=== PATIENT | male | born 1960 | race African-American/Black ===

== ENCOUNTER 2020-10-05 06:31 | Emergency (ER) | payer OTHER, SELFPAY ==
--- NOTE | 2020-10-05 07:00 | ED_ITS ---
HPI - Skin/Abscess/Foreign Bdy General Chief complaint: Skin/Abscess/Foreign Body Stated complaint: ?bug bite Time Seen by Provider: 10/05/20 07:00 Source: patient and metal buffer Mode of arrival: ambulatory Limitations: no limitations History of Present Illness complaint: abscess/boil Onset (ago): week(s) (1) Tetanus up to date: yes Location: buttocks Severity: moderate Quality: aching Pain Consistency: constant Relieving factors: none Exacerbating factors: movement Context: none Associated symptoms: denies other symptoms Treatments prior to arrival: none Related Data Previous Rx's Medication Instructions Recorded cephalexin 500 mg PO TID 7 Days #21 cap 10/05/20 doxycycline hyclate 100 mg PO BID 7 Days #14 cap 10/05/20 Allergies Allergy/AdvReac Type Severity Reaction Status Date / Time No Known Allergies Allergy Unverified 08/16/20 15:54 Review of Systems Review of Systems: Constitutional : No Fever, No Chills ENT/Mouth : No sore throat, No Rhinorrhea Eyes: No Eye Pain, No Swelling, No Redness Cardiovascular : No Chest Pain, No SOB Respiratory : No Cough, No Sputum Gastrointestinal : No Nausea, No Vomiting, No Diarrhea, No abdominal Pain Genitourinary : No Dysuria, No Hematuria, positive rectal pain Musculoskeletal : No joint pain, No Myalgias, No Joint Swelling Skin : No Skin Lesions, positive skin lesion Neuro : No Weakness, No Numbness, No Headache Psych : No Anxiety, No Depression Heme/Lymph: No Bruising, No Bleeding,No Lymphadenopathy Endocrine : No Polyuria, No Polydipsia All other systems reviewed and are negative [facility] Past Medical History Attestation statement: The following information was validated with the patient. Medical History (Updated 10/05/20 @ 10:05 by Jesica Medeiros DO) Depression Gastritis Social History Social History (Updated 10/05/20 @ 07:01 by Jesica Medeiros DO) Alcohol intake: never Smoking Status: Never smoker Smoked in Last 30 Days: No Use of substances other than those prescribed or required for medical reasons: Yes Substance Use Type: Marijuana Substance Use Frequency: Chronic Longstanding Advance Directives: No Advance Directives Information Provided: No Physical Exam Vital Signs: Vital Signs: Last Vital Signs Temp 98.3 F 10/05/20 07:08 Pulse 83 10/05/20 07:08 Resp 16 10/05/20 07:08 BP 138/70 10/05/20 07:08 Pulse Ox 98 10/05/20 07:08 Body Mass Index 22.2 Appearance: Alert. Oriented X3. No acute distress. Eyes: Pupils equal, round and reactive to light. ENT: Pharynx normal. Neck: Normal inspection. Neck supple. CVS: Normal heart rate and rhythm. Pulses normal. Respiratory: No respiratory distress. Breath sounds normal. Abdomen: Soft and nontender. Rectal: left perianal area into rectum fluctuant lesion noted mild erythema/no crepitus, about 3cm palpable area Skin: Skin warm and dry. Normal skin color. Normal skin turgor. Extremities: No lower extremity edema. No calf ttp Neuro: Oriented X 3. No motor deficit. No sensory deficit. Course Course Course Narrative: prelim CT read: skin thickening subq fat and buttock, thick ening of anus no abscess seen, circumferential wall thickening of aorta and iliac arteries and adjacent lymphadenopathy ?vasculitis vs atypical atherosclerotic ds, small R renal cyst call to Dr. Amin for ?vasculitis seems atypical no abscess will start on antibiotics and refer to surgery for cellulitis - no WBC count, afebrile, neg lactic acidosis per Dr. Amin after review of CT scan - thickened ? nothing acute to do at this time - treat with antibiotics, follow up in clinic MDM - Skin/Abscess/Foreign Bdy MDM Narrative Medical decision making narrative: 60 yo male no known DM here with 1+ week of perineum abscess that extends to rectum - painfuul to touch, no crepitus, no sig erythema of skin, scrotum appears normal - given location and extension to rectal area will obtain labs, CT scan for depth, IV zosyn, IV morphine for pain, dispo per results and findings. Lab Data Result diagrams: 10/05/20 07:33 10/05/20 07:33 Labs: Lab Results 10/05/20 10/05/20 10/05/20 Range/Units 07:33 07:33 07:33 WBC 8.9 (4.8-10.8) X10*3/uL RBC 4.37 L (4.60-5.80) X10*6/uL Hgb 12.5 L (14.0-18.0) g/dl Hct 39.5 L (42-52) % MCV 90.4 (80-98) fL MCH 28.6 (27.0-33.0) pg MCHC 31.6 (31.0-36.0) g/dl RDW 14.3 (11.0-16.0) % Plt Count 238 (160-400) X10*3/uL MPV 10.1 (9.4-12.4) fL Immature Gran % (Auto) 0.1 (0.0-0.4) % Neut % (Auto) 65.8 (45-73) % Lymph % (Auto) 23.2 (20-40) % [place] % (Auto) 8.3 (2-11) % Eos % (Auto) 2.4 (0-4) % Baso % (Auto) 0.2 (0-2) % Lymph # (Auto) 2.1 (1.2-4.9) X10*3/uL [place] # (Auto) 0.7 (0.1-1.2) X10*3/uL Eos # (Auto) 0.2 (0.0-0.4) X10*3/uL Baso # (Auto) 0.0 (0.0-0.2) X10*3/uL Abs Immat Gran (auto) 0.01 (0.00-0.03) X10*3/uL Absolute Neuts (auto) 5.9 (2.0-8.3) X10*3/uL Absolute Nucleated RBC 0.000 (0.0-0.012) X10*3/uL Nucleated RBC % (auto) 0.0 (0.0-0.2) /100WBC PT 12.2 (10.8-13.0) SEC INR 1.0 (0.9-1.1) APTT 34.6 (24.1-38.0) SEC Sodium 139 (135-145) mmol/L Potassium 4.0 (3.3-5.1) mmol/l Chloride 103 (96-108) mmol/L Carbon Dioxide 29 (22-29) mmol/L Anion Gap 11 L (12-20) BUN 13 (9-16) mg/dL Creatinine 0.92 (0.5-1.4) mg/dL Estim Creat Clear Calc 74.6 Estimated GFR > 60 Random Glucose 117 H (60-115) mg/dL Lactic Acid (0.5-2.0) mmol/L Calcium 8.3 L (8.4-10.2) mg/dL Magnesium 1.9 (1.6-2.6) mg/dL 10/05/20 Range/Units 07:33 WBC (4.8-10.8) X10*3/uL RBC (4.60-5.80) X10*6/uL Hgb (14.0-18.0) g/dl Hct (42-52) % MCV (80-98) fL MCH (27.0-33.0) pg MCHC (31.0-36.0) g/dl RDW (11.0-16.0) % Plt Count (160-400) X10*3/uL MPV (9.4-12.4) fL Immature Gran % (Auto) (0.0-0.4) % Neut % (Auto) (45-73) % Lymph % (Auto) (20-40) % [place]orne % (Auto) (2-11) % Eos % (Auto) (0-4) % Baso % (Auto) (0-2) % Lymph # (Auto) (1.2-4.9) X10*3/uL [place] # (Auto) (0.1-1.2) X10*3/uL Eos # (Auto) (0.0-0.4) X10*3/uL Baso # (Auto) (0.0-0.2) X10*3/uL Abs Immat Gran (auto) (0.00-0.03) X10*3/uL Absolute Neuts (auto) (2.0-8.3) X10*3/uL Absolute Nucleated RBC (0.0-0.012) X10*3/uL Nucleated RBC % (auto) (0.0-0.2) /100WBC PT (10.8-13.0) SEC INR (0.9-1.1) APTT (24.1-38.0) SEC Sodium (135-145) mmol/L Potassium (3.3-5.1) mmol/l Chloride (96-108) mmol/L Carbon Dioxide (22-29) mmol/L Anion Gap (12-20) BUN (9-16) mg/dL Creatinine (0.5-1.4) mg/dL Estim Creat Clear Calc Estimated GFR Random Glucose (60-115) mg/dL Lactic Acid 1.3 (0.5-2.0) mmol/L Calcium (8.4-10.2) mg/dL Magnesium (1.6-2.6) mg/dL Discharge Plan Discharge Clinical Impression: Cellulitis Qualifiers: Site of cellulitis: buttock Qualified Code(s): L03.317 - Cellulitis of buttock Patient Disposition: Home, Self-Care Instructions: Cellulitis (ED) Additional Instructions: return to ED for any worsening symptoms or concerns you will need to have a repeat CT scan in the next few months to assess your blood vessels Prescriptions: New cephalexin 500 mg capsule 500 mg PO TID 7 Days Qty: 21 RF: 0 doxycycline hyclate 100 mg capsule 100 mg PO BID 7 Days Qty: 14 RF: 0 Referrals: Nga Domingo MD [Primary Care Provider] - 2 days (2 days wound check) Luis Fernando Frias MD [Physician] - 1 week Octavio Amin MD [Physician] - 2 weeks (follow up in the next few weeks) Stand Alone Forms: Work/School Release Print Language: Romanian
[2020-10-05 07:08] VITALS: BP 138/70; PULSE 83; RESP 16; TEMP 36.8; O2SAT 98; BMI 22.2
--- NOTE | 2020-10-05 07:11 | CT_ITS ---
EXAMINATION: CT ABDOMEN AND PELVIS WITH CONTRAST CLINICAL INFORMATION: Left perirectal swelling and mass. COMPARISON: None TECHNIQUE: Multidetector volumetric images were obtained from the superior aspect of the liver through the pubic symphysis following administration 85 mL of Omnipaque 350 intravenous contrast. Sagittal and coronal reformatted images were obtained on the technologist's workstation. No oral contrast. This CT examination was performed using dose optimization techniques as appropriate, variously including the following: *Automated exposure control *Adjustment of mA and/or kV according to patient size (this includes techniques or standardized protocols for targeted exams where dose is matched to indication/reason for exam; i.e. extremities or head) *Use of iterative reconstruction technique DLP: 512 mGy-cm FINDINGS: LUNG BASES: The visualized lung bases are unremarkable. LIVER, GALLBLADDER, AND BILIARY TREE: The liver is normal in size, shape, and attenuation. No focal hepatic lesion or biliary ductal dilatation is present. The gallbladder is unremarkable with no evidence of radiopaque gallstones, gallbladder wall thickening, or obvious pericholecystic inflammatory changes. PANCREAS: Unremarkable. SPLEEN: Unremarkable. ADRENAL GLANDS: Unremarkable. KIDNEYS AND URETERS: There are small right renal cysts. The kidneys are otherwise unremarkable. BLADDER: Unremarkable. GASTROINTESTINAL TRACT: There is skin thickening and stranding of the subcutaneous fat along the left gluteal fold. There is slight wall thickening along the left side of the anus. No abscess is seen. The rectum is unremarkable. The small and large bowel is unremarkable. The appendix is unremarkable. ABDOMINAL WALL: There is a small umbilical hernia containing fat. LYMPH NODES: There is diffuse retroperitoneal lymphadenopathy in the lower abdomen and upper pelvis. Lymph nodes are normal in size. VASCULAR: There is significant wall thickening of the infrarenal abdominal aorta and bilateral common iliac arteries. There is some stranding of the surrounding fat. There is some vessel wall calcification. Appearance is questionable for vasculitis versus atherosclerotic disease. No aneurysm is seen. PELVIC VISCERA: The prostate gland is enlarged. OSSEOUS STRUCTURES: Unremarkable. CT/CT abdomen pelvis w con IMPRESSION: 1. Skin thickening and stranding of the subcutaneous fat over the buttock and slight wall thickening of the anus. No abscess seen. 2. Enlarged prostate gland. 3. Diffuse circumferential wall thickening of the lower abdominal aorta and common iliac arteries and adjacent lymphadenopathy. Appearance is questionable for possible vasculitis versus atypical appearance of atherosclerotic disease. 4. Small right renal cysts.
[2020-10-05 07:39] LABS: MANUAL DIFF FLAG NO
[2020-10-05 07:41] LABS: Basophils Percent Auto 0.2 % (0-2); Eosinophils Absolute Auto 0.2 X10*3/uL (0.0-0.4); Eosinophils Percent Auto 2.4 % (0-4); Hematocrit 39.5 % (42-52); Hemoglobin 12.5 g/dl (14.0-18.0); Imm Gran Abs Auto 0.01 X10*3/uL (0.00-0.03); Imm Gran Pct Auto 0.1 % (0.0-0.4); Lymphocytes Absolute Auto 2.1 X10*3/uL (1.2-4.9); Lymphocytes Percent Auto 23.2 % (20-40); Mean Corpuscular HGB Conc 31.6 g/dl (31.0-36.0); Mean Corpuscular Hemoglobin 28.6 pg (27.0-33.0); Mean Corpuscular Volume 90.4 fL (80-98); Mean Platelet Volume 10.1 fL (9.4-12.4); Monocytes Absolute Auto 0.7 X10*3/uL (0.1-1.2); Monocytes Percent Auto 8.3 % (2-11); Neutrophils Absolute Auto 5.9 X10*3/uL (2.0-8.3); Neutrophils Percent Auto 65.8 % (45-73); Platelet Count 238 X10*3/uL (160-400); Red Blood Count 4.37 X10*6/uL (4.60-5.80); Red Cell Distribution Width 14.3 % (11.0-16.0); White Blood Count 8.9 X10*3/uL (4.8-10.8)
[2020-10-05 07:50] LABS: Prothrombin Time 12.2 SEC (10.8-13.0)
[2020-10-05 07:52] LABS: Partial Thromboplastin Time 34.6 SEC (24.1-38.0)
[2020-10-05 07:57] LABS: Lactic Acid 1.3 mmol/L (0.5-2.0)
[2020-10-05] MEDS: Piperacillin Sodium/Tazobactam 3.375 GM in 0.9 % Sodium Chloride 50 ML IV (07:59)
[2020-10-05 08:01] LABS: Anion Gap 11 (12-20); Blood Urea Nitrogen 13 mg/dL (9-16); Calcium 8.3 mg/dL (8.4-10.2); Carbon Dioxide 29 mmol/L (22-29); Chloride 103 mmol/L (96-108); Creatinine Clr Calc Pharmacy 74.6; Estimated Glomerular Filt Rate > 60; Glucose Random 117 mg/dL (60-115); Magnesium 1.9 mg/dL (1.6-2.6); Sodium 139 mmol/L (135-145)
[2020-10-05] MEDS: iohexoL 350 MG/ML 100 ML INFUS..BTL IV (09:14)
[2020-10-05 10:17] VITALS: BP 113/69; PULSE 71; RESP 18; O2SAT 98
== END 2020-10-05 10:25 | disposition home or self-care (01) ==
PROVIDERS: Emergency Provider Emergency Medicine; PCP Internal Medicine
DX: L03.317 Cellulitis of buttock (principal); R10.9 Unspecified abdominal pain; Z79.899 Other long term (current) drug therapy
CPT/HCPCS: 36415; 74177; 80048; 83605; 83735; 85025; 85610; 85730; 87040; 96365; 96375; 99284; J2270; J2405; J2543; Q9967

== ENCOUNTER → 2020-10-11 09:53 | Outpatient (BNVA) | payer OTHER, SELFPAY | PROVIDERS: PCP Internal Medicine; Visit Provider Surgery | DX: K61.0 Anal abscess (principal) | CPT/HCPCS: 99202 ==

== ENCOUNTER → 2020-10-23 10:31 | Outpatient (BNVA) | payer OTHER, SELFPAY | PROVIDERS: PCP Internal Medicine; Visit Provider Surgery | DX: K61.0 Anal abscess (principal) | CPT/HCPCS: 46050; 99212 ==

== ENCOUNTER → 2020-10-24 08:31 | Outpatient (BNVA) | payer OTHER, SELFPAY | PROVIDERS: PCP Internal Medicine; Visit Provider Surgery | DX: Z13.89 Encounter for screening for other disorder (principal) | CPT/HCPCS: 99211; 99212 ==

== ENCOUNTER → 2020-11-08 10:48 | Outpatient (BNVA) | payer OTHER, SELFPAY | PROVIDERS: PCP Internal Medicine; Visit Provider Surgery | DX: K61.0 Anal abscess (principal) | CPT/HCPCS: 99212 ==

== ENCOUNTER 2021-05-15 07:48 | Outpatient (REF) | payer OTHER, SELFPAY ==
--- NOTE | ~2021-05-15 | XR_ITS ---
EXAMINATION: XR CHEST CLINICAL INFORMATION: Chest pain COMPARISON: None TECHNIQUE: 2 views of the chest were obtained. FINDINGS: The lungs are well-expanded and clear. The heart size and pulmonary vascular edema normal. No gross bony abnormality seen. XR/XR chest 2V IMPRESSION: Unremarkable chest exam.
== END 2021-05-15 07:49 | disposition home or self-care (01) ==
LOC: HO.XRAY 07:48
PROVIDERS: Absent Provider Internal Medicine; PCP Internal Medicine; Visit Provider Family Medicine
DX: R07.89 Other chest pain (principal)
CPT/HCPCS: 71046

== ENCOUNTER 2021-06-13 08:00 | Outpatient (RCR) | payer OTHER, SELFPAY ==
--- NOTE | 2021-06-05 16:03 | MHC.PT.EP ---
[facility] [place] Office [place] [facility] [place] [facility] [address] Heber Epps [address] [phone] F: [phone] F: [phone] F: [phone] F: [phone] Physical Therapy Plan of Care Date of Evaluation: Date of Surgery: NA Diagnosis: CHEST WALL PAIN Assessment: Pt IS 61 YO M REFERRED TO PT FROM [facility] (DR ANDRADE) WITH CHRONIC L CHEST PAIN. 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 Pt HAS POOR/GUARDED POSTURE (FWD HEAD, ROUNDED SHLDERS WITH L SHLDER DEPRESSED), TTP L PEC MMS AND TIGHTNESS UT/SCAP AREA ON L. HAS APPT WITH DRINK BOX MECHANIC NEXT MONTH (OF NOTE, HE DOES REPORT INCREASE IN PAIN IN THIS AREA WITH FAST WALKING AND HEAVY LIFTING). Pt ED RE MUSCULAR PAIN VS CARDIAC PAIN, ED RE SXS OF IA (SWEATING, DIZZINESS, PAIN DOWN L ARM). Pt ALSO WITH HX OF DEPRESSION Frequency and Duration: The patient will be seen 2X/WK X 6 WKS Short Term Goals: 1. INCREASED POSTURE AWARENESS AND AWARENESS L SHLDER/PEC CARE 2. INCREASED WALKING DISTANCE BEFORE PAIN BEGINS Metrology Manager Goals: 1. I HEP WITH DC EX PLAN 2. DECREASE L SIDED CHEST PAIN AT LEAST 50% WITH ADLS Treatment Plan: Modalities to reduce pain, spasms and effusion. Manual therapy to restore motion and function. Therapeutic exercise to improve strength and flexibility. Neuromuscular re-education for posture and balance. Therapeutic activities to return to functional activities of daily living. Electronically signed by: RUBI CHERY PT Please sign and return to therapist. Thank you for your referral.
== END 2021-08-12 11:37 | disposition home or self-care (01) ==
LOC: HO.PT 08:00
PROVIDERS: PCP Internal Medicine; Visit Provider Internal Medicine
DX: R07.89 Other chest pain (principal)
CPT/HCPCS: 97110; 97162

== ENCOUNTER → 2021-07-02 10:11 | Outpatient (BNVA) | payer OTHER, SELFPAY | PROVIDERS: PCP Internal Medicine; Referring Provider Internal Medicine; Visit Provider Internal Medicine | DX: R07.2 Precordial pain (principal) | CPT/HCPCS: 93005; 99202 ==

== ENCOUNTER 2022-10-06 07:31 | Outpatient (REF) | payer OTHER, SELFPAY ==
--- NOTE | ~2022-10-06 | XR_ITS ---
EXAMINATION: XR LUMBOSACRAL SPINE WITH OBLIQUES CLINICAL INFORMATION: Lumbago with sciatica. COMPARISON: CT abdomen and pelvis 10/05/2020 TECHNIQUE: Lumbar spine is imaged in 5 views. FINDINGS: There is normal lumbar segmentation with 5 nonrib-bearing lumbar vertebrae of normal height and normal lumbar lordosis. There is no focal disc narrowing or erosive change. There are mild degenerative changes with some multilevel anterior vertebral spurring. Oblique view show no spondylolysis. There are mild degenerative changes SI joints. XR/XR lumbar spine 4V min IMPRESSION: 1. Mild multilevel anterior vertebral spurring. 2. Mild degenerative changes SI joints.
== END 2022-10-06 07:32 | disposition home or self-care (01) ==
LOC: HO.XRAY 07:31
PROVIDERS: PCP Internal Medicine; Visit Provider Internal Medicine
DX: M54.41 Lumbago with sciatica, right side (principal)
CPT/HCPCS: 72110

== ENCOUNTER → 2023-04-20 07:27 | Outpatient (BNVA) | payer OTHER, SELFPAY | PROVIDERS: PCP Internal Medicine; Referring Provider Internal Medicine; Visit Provider Physician Assistant | DX: Z12.11 Encounter for screening for malignant neoplasm of colon (principal) | CPT/HCPCS: 99202 ==